=== PATIENT | male | born 1990 | race Caucasian/White ===

== ENCOUNTER 2017-05-16 03:40 | Emergency (ER) | payer SELFPAY ==
--- NOTE | 2017-05-16 03:53 | ED Physician Documentation ---
General Adult - HISTORIAN Historian: patient - HPI Stated Complaint: fit for confinement Chief Complaint: General Adult Onset: hours (1) Timing: still present Severity: moderate Further Comments: yes (Patient is here with law enforcement for fit for confinement. he is belligerent with staff and law enforcement. he does anwswer he is not injured or in any other issues. He answers medical questions appropriately. Denies any pain or injury) Last known Well Date: 05/15/17 Last Known Well Time: 08:00 Last known Well Code/Unknown Code: Unknown - ROS CONST: no problems - PAST HX Past History: none Other History: none Surgeries/Procedures: none Immunizations: referred to PCP - SOCIAL HX Smoking History: non-smoker Alcohol Use: none Drug Use: none - FAMILY HX Family History: No - REVIEWED ASSESSMENTS Nursing Assessment Reviewed: Yes Vitals Reviewed: Yes General Adult Physical Exam - PHYSICAL EXAM GENERAL APPEARANCE: no distress EENT: eye inspection normal RESPIRATORY: no resp distress CVS: reg rate & rhythm, heart sounds normal SKIN: warm/dry, normal color EXTREMITIES: non-tender NEURO: oriented X3, CN's nml as tested, motor nml Discharge Clincal Impression: Intoxication Referrals: Aliza Bauer MD [Primary Care Provider] - 2 Days Condition: Stable Disposition: 01 HOME, SELF-CARE Decision to Admit: NO Date of Decison to Admit: 05/16/17 Decision Time: 04:00
== END 2017-05-16 03:55 | disposition home or self-care (01) ==
LOC: ED 03:40
DX: F10.129 Alcohol abuse with intoxication, unspecified (principal)
CPT/HCPCS: 99282